=== PATIENT | male | born 1985 | race Caucasian/White ===

== ENCOUNTER 2021-07-12 02:47 | Emergency (ER) | payer SELFPAY ==
[~2021-07-12] VITALS: Ht 188 cm; Wt 108.9 kg
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
[2021-07-12 03:37] LABS: HEMATOCRIT 36.3 % (36.7-47.1); MEAN CORPUSCULAR VOLUME 86.9 fL (73.0-96.2); PLATELET COUNT (AUTO) 282 K/uL (152-348)
[2021-07-12 03:41] LABS: POTASSIUM 3.5 mmol/L (3.5-5.1)
[2021-07-12] MEDS: KETOROLAC TROMETHAMINE 60 MG INJ IM ONE ×2 (03:49→03:50)
[2021-07-12] MEDS ORDERED: KETOROLAC TROMETHAMINE 60 MG INJ IM ONE (03:54)
--- NOTE | 2021-07-12 04:00 | NUR ---
Patient resting in room with nio distress noted.
[2021-07-12] MEDS ORDERED: NAPR-1164 PO (04:08)
--- NOTE | 2021-07-12 04:16 | NUR ---
Patient given written and verbal discharge instructions. Patient verbalizes understanding of instructions. Patient is ambulatory with steady gait. Refuses offer of penitentiary placement. Patient given list of available shelters in surrounding area.
[2021-07-12 04:20] VITALS: BP 148/99
== END 2021-07-12 04:20 | disposition home or self-care (01) ==
LOC: ER 02:54
DX: S20.211A Contusion of right front wall of thorax, initial encounter (principal); Y04.2XXA Assault by strike against or bumped into by another person, initial encounter; Y92.89 Other specified places as the place of occurrence of the external cause; Y99.8 Other external cause status; Z59.0 Homelessness; R00.0 Tachycardia, unspecified; D64.9 Anemia, unspecified; E86.0 Dehydration; E11.9 Type 2 diabetes mellitus without complications; G40.909 Epilepsy, unspecified, not intractable, without status epilepticus
CPT/HCPCS: 36415; 71101; 80048; 85025; 96372; 99284; J1885; A4663